=== PATIENT | male | born 1975 | race Caucasian/White ===

== ENCOUNTER 2017-03-24 09:16 | Emergency (ER) | payer MEDICAID ==
[2017-03-24 09:22] VITALS: BP 111/67
--- NOTE | 2017-03-24 09:52 | UC ---
Throat Pain/Nasal Wolf HPI - HPI Summary HPI Summary: 41 YEAR OLD MALE PRESENTS WITH SORE THROAT X 1 WEEK - History of Current Complaint Chief Complaint: UCRespiratory Stated Complaint: SORE THROAT Time Seen by Provider: 03/24/17 09:28 - Allergies/Home Medications Allergies/Adverse Reactions: Allergies Allergy/AdvReac Type Severity Reaction Status Date / Time No Known Allergies Allergy Verified 12/21/13 14:58 PMH/Surg Hx/FS Hx/Imm Hx Other History Of: Negative For: Anticoagulant Therapy - Surgical History Surgical History: None Surgery Procedure, Year, and Place: SMOKER, HYPOTHYROID - Social History Alcohol Use: Occasionally Alcohol Amount: "A FEW EVERY DAY" Substance Use Type: None Smoking Status (MU): Light Every Day Tobacco Smoker Type: Cigarettes Amount Used/How Often: 1/2 ppd - Immunization History Most Recent Tetanus Shot: <5 YEARS Review of Systems Constitutional: Negative Skin: Negative Eyes: Negative ENT: Sore Throat Respiratory: Negative Cardiovascular: Negative Gastrointestinal: Negative Musculoskeletal: Negative Neurological: Negative All Other Systems Reviewed And Are Negative: Yes Physical Exam Triage Information Reviewed: Yes Vital Signs: Initial Vital Signs Temp 37.4 C 03/24/17 09:18 Pulse 79 03/24/17 09:18 Resp 16 03/24/17 09:18 BP 111/67 03/24/17 09:18 Pulse Ox 100 03/24/17 09:18 Vital Signs Reviewed: Yes Eye Exam: Normal ENT: Positive: Pharyngeal erythema, Nasal drainage Neck exam: Normal Respiratory Exam: Normal Cardiovascular Exam: Normal Abdominal Exam: Normal Throat Pain/Nasal Course/Dx - Differential Dx/Diagnosis Differential Diagnosis/HQI/PQRI: Pharyngitis Provider Diagnoses: ALLERGIC RHINNITIS Discharge - Discharge Plan Condition: Stable Disposition: HOME Prescriptions: Amoxicillin CAP* [Amoxicillin 500 MG CAP*] 500 mg PO TID #21 cap Magic Mouth Was-BRIANNE/MAAL/LIDO* 5 ml SWISH SPIT QID #90 ml Patient Education Materials: Pharyngitis (ED) Forms: *Work Release Referrals: Jacinto Miles MD [Primary Care Provider] - If Needed
== END 2017-03-24 10:19 | disposition home or self-care (01) ==
LOC: UCEAST 09:16
DX: J30.9 Allergic rhinitis, unspecified (principal); F17.210 Nicotine dependence, cigarettes, uncomplicated
CPT/HCPCS: 87651; 99212; G0463

== ENCOUNTER 2017-12-06 07:59 | Emergency (ER) | payer OTHER ==
[2017-12-06 08:12] VITALS: BP 136/88
--- NOTE | 2017-12-06 09:02 | UC ---
Leroy English Jennifer, scribed for Marylin Bryan MD on 12/06/17 at 0853 . Ear Complaint HPI - HPI Summary HPI Summary: The patient is a 42 year old male who presents with plugged ears for almost two weeks. The patient reports he had a head cold and congestion for a while which is now gone, but he has had ringing and hissing in both ears, with the right ear being slightly worse. He replies that he tried a lot of decongestants and finished a bottle of Robitussin DM but nothing has helped. Pt states has continue to have nasal fullness - blowing nose and it "pops" in his ear. No pain. No fever, chills, rash. No vigil, vision changes. No cp, sob, abd pain. Pt also requested I eval left ankle that he sprained few weeks ago when he inverted it pulling piece of metal. Pt states he has been applying ice. Pt states has taken motrin with relief. Pt states continues to hurt a little so would like it checked. Patients medications reviewed this visit. - History of Current Complaint Chief Complaint: UCEar Stated Complaint: EAR PAIN Time Seen by Provider: 12/06/17 08:30 Hx Obtained From: Patient Onset/Duration: Sudden Onset, Lasting Weeks - almost 2 weeks, Still Present Severity Initially: Mild Severity Currently: Mild Pain Intensity: 2 Pain Scale Used: 0-10 Numeric Aggravating Factors: Nothing Alleviating Factors: Nothing Associated Signs/Symptoms: Positive: Hearing Loss - "ringing and hissing" in both ears Related History: Smoking, Other (Noted In Comments) - Cold - Allergies/Home Medications Allergies/Adverse Reactions: Allergies Allergy/AdvReac Type Severity Reaction Status Date / Time No Known Allergies Allergy Verified 12/06/17 08:06 Home Medications: Home Medications Levothyroxine TAB* [Synthroid TAB*] 175 mcg PO 12/06/17 [History] PMH/Surg Hx/FS Hx/Imm Hx Previously Healthy: Yes - NEG: HTN, DM Other History Of: Negative For: Anticoagulant Therapy - Surgical History Surgical History: None Surgery Procedure, Year, and Place: SMOKER, HYPOTHYROID - Family History Known Family History: Positive: Diabetes - Grandmother - Social History Occupation: Employed Full-time Lives: Dormitory/Roommates Alcohol Use: Occasionally Alcohol Amount: "A FEW EVERY DAY" Substance Use Type: None Smoking Status (MU): Light Every Day Tobacco Smoker Type: Cigarettes Amount Used/How Often: 1/2 ppd - Immunization History Most Recent Tetanus Shot: <5 YEARS Review of Systems Constitutional: Negative - Fever ENT: Ear Ache - "ringing and hissing" in ear Musculoskeletal: Other: - Sprained ankle All Other Systems Reviewed And Are Negative: Yes Physical Exam Triage Information Reviewed: Yes Appearance: Well-Appearing, No Pain Distress Vital Signs: Initial Vital Signs Temp 97.6 F 12/06/17 08:09 Pulse 81 12/06/17 08:09 Resp 16 12/06/17 08:09 BP 136/88 12/06/17 08:09 Pulse Ox 99 12/06/17 08:09 Vital Signs Reviewed: Yes Eye Exam: Normal Eyes: Positive: Conjunctiva Clear ENT: Positive: Pharynx normal, Nasal congestion, Other - right TM + fluid, no erythema, no bulge left tm scant fluid turbinates inflammed mmoist no exudate, no erythema. Negative: TMs normal, Tonsillar swelling, Tonsillar exudate Dental Exam: Normal Neck exam: Normal Neck: Positive: Supple Respiratory: Positive: Chest non-tender, Lungs clear, Normal breath sounds, No respiratory distress, No accessory muscle use Cardiovascular Exam: Normal Cardiovascular: Positive: RRR, No Murmur, Pulses Normal Musculoskeletal: Positive: Other: - + SLE + flex/ext knee + flex/ext ankle + TTP anterior aspect medial malleoulus no crepitus, no edema, no ecchymosis no pain along MT + inversion/eversion Neurological Exam: Normal Neurological: Positive: Alert - + gross sensation throughout foot Psychological Exam: Normal Psychological: Positive: Normal Response To Family Ear Complaint Course/Dx - Course Course Of Treatment: Pt with ears feeling full R>L Pt with fluid in right ear s /p URI. will Rx flonase and pseudoephederine (pt requesting Rx for records officer). recommend schedule a follow-up with PCP for next week. If sx persist may need further referral. d/w pt tinnitus - understands and agree with plan. Pt with mild discomfort medial malleoulus. pt declined analgesia and imaging. tiffany wrap. motrin/apap. ice. elevate. pt comfortable and in agreement with plan - Differential Dx/Diagnosis Provider Diagnoses: serous OM. ankle sprain Discharge - Discharge Plan Condition: Stable Disposition: HOME Prescriptions: Fluticasone NASAL SPRAY 50MCG* [Flonase NASAL SPRAY 50MCG*] 2 spray BOTH NARES DAILY #1 btl Pseudoephedrine HCL ER TAB* [Sudafed 12 Hour*] 120 mg PO DAILY #10 tab.er Patient Education Materials: Ankle Sprain (ED), Serous Otitis Media (ED) Forms: *Gen. Provider Communication Referrals: Woody Mayo MD [Primary Care Provider] - Additional Instructions: - Use nasal spray daily as instructed - It is also recommended you take a decongestant (pseudo-ephedrine) daily. You have been given a prescription for a 10 days course - for your ankle, wear tiffany wrap for support. - Okay to take ibuprofen (advil, motrin) and tylenol every 3 hours for pain. Take with food. - contact your doctor today to schedule a recheck of your ear next week.If you continue to have a ringing sound or concerns, your primary doctor may order additional testing or refer you to an jewel bearing maker The documentation as recorded by the Leroy joseph Jennifer accurately reflects the service I personally performed and the decisions made by , Marylin Bryan MD.
== END 2017-12-06 09:09 | disposition home or self-care (01) ==
LOC: UCEAST 07:59
DX: H65.90 Unspecified nonsuppurative otitis media, unspecified ear (principal); S93.402A Sprain of unspecified ligament of left ankle, initial encounter; X50.9XXA Other and unspecified overexertion or strenuous movements or postures, initial encounter; Y93.89 Activity, other specified; Y92.9 Unspecified place or not applicable; F17.210 Nicotine dependence, cigarettes, uncomplicated
CPT/HCPCS: 99212; G0463

== ENCOUNTER 2018-02-28 11:02 | Emergency (ER) | payer SELFPAY ==
[2018-02-28] MEDS ORDERED: Ketorolac INJ* 60 MG/2 ML VIAL IM ONE (11:36)
[2018-02-28] MEDS ORDERED: HYDROmorphone INJ* 2 MG/ML CARPUJECT SYRINGE IM ONE (11:37)
--- NOTE | 2018-02-28 12:02 | RAD ---
INDICATION: Left knee injury. TECHNIQUE: 2 views of the left knee were obtained. FINDINGS: The bones are normal alignment. There is a small joint effusion present. No fracture is seen. Joint spaces appear maintained. IMPRESSION: SMALL JOINT EFFUSION, NO FRACTURE IS SEEN.
[2018-02-28 12:24] VITALS: BP 128/81
--- NOTE | 2018-02-28 18:28 | ED ---
Niall English Rebecca, scribed for Husam Morales MD on 02/28/18 at 1127 . Lower Extremity - HPI Summary HPI Summary: Pt is a 42 y/o M who presents to ED c/o L knee pain. Yesterday afternoon, he was moving a 100 gallon tank when his left knee slipped in the mud and "folded in." At this time he "felt like it popped out of the joint for a second." Pain began after the incident, becoming especially bad at 0030 at which time he was woken up by the pain and he could not move the knee. Pain is on the lateral side of the knee and is currently severe, ranked 8/10. Took 5-6 ASA yesterday and more today about 1 hour EMERGENCY PHYSICIAN which have not alleviated sx. Sx aggravated by movement, especially flexion, alleviated by nothing. Denies tinnitus, numbness, weakness. Confirms that he can ambulate, but barely. Pt is active and works in maintenance. Incident occurred while the pt was at work. - History of Current Complaint Chief Complaint: EDExtremityLower Stated Complaint: LT KNEE INJURY Time Seen by Provider: 02/28/18 11:14 Hx Obtained From: Patient Mechanism Of Injury: Twisted Onset of Pain: Prior to Arrival Onset/Duration: Still Present Severity Currently: Severe Pain Intensity: 8 Pain Scale Used: 0-10 Numeric Location: Is Discrete @ - Lateral side of the left knee Associated Signs And Symptoms: Positive: Negative Aggravating Factor(s): Movement Alleviating Factor(s): Nothing Able to Bear Weight: Yes - Barely Related History: Occupational Injury - Allergies/Home Medications Allergies/Adverse Reactions: Allergies Allergy/AdvReac Type Severity Reaction Status Date / Time No Known Allergies Allergy Verified 12/06/17 08:06 Home Medications: Home Medications Multivitamins/Minerals TAB* [Theragran/minerals TAB*] 1 tab PO DAILY 02/28/18 [ History Confirmed 02/28/18] Omeprazole CAP* [Prilosec CAP* 20 MG] 20 mg PO DAILY 02/28/18 [History Confirmed 02/28/18] PMH/Surg Hx/FS Hx/Imm Hx Endocrine/Hematology History: Reports: Hx Thyroid Disease - HYPOTHYROID Denies: Hx Anticoagulant Therapy Cardiovascular History: Denies: Hx Coronary Artery Disease - Surgical History Surgery Procedure, Year, and Place: SMOKER, HYPOTHYROID Infectious Disease History: No Infectious Disease History: Denies: Traveled Outside the [place] in Last 30 Days - Family History Known Family History: Positive: Diabetes - Grandmother - Social History Alcohol Use: Occasionally Alcohol Amount: "A FEW EVERY DAY" Substance Use Type: Reports: None Smoking Status (MU): Light Every Day Tobacco Smoker Type: Cigarettes Amount Used/How Often: 1/2 ppd Review of Systems Positive: Other - NEGATIVE: Tinnitus Positive: Arthralgia - L lateral knee pain Negative: Weakness, Numbness All Other Systems Reviewed And Are Negative: Yes Physical Exam - Summary Physical Exam Summary: Appearance: Well appearing, no pain distress Skin: warm, dry, reflects adequate perfusion Head/face: normal Eyes: EOMI, JAMIR ENT: normal Neck: supple, non-tender Respiratory: CTA, breath sounds present Cardiovascular: RRR, pulses symmetrical Abdomen: non-tender, soft Bowel Sounds: present Musculoskeletal: Effusion on the left knee, lateral joint line tenderness on the left knee Neuro: normal, sensory motor intact, A&Ox3 Triage Information Reviewed: Yes Vital Signs On Initial Exam: Initial Vitals Temp Pulse Resp BP Pulse Ox 97.1 F 90 18 133/81 99 02/28/18 11:03 02/28/18 11:03 02/28/18 11:03 02/28/18 11:03 02/28/18 11:03 Vital Signs Reviewed: Yes Diagnostics - Vital Signs Vital Signs Temp Pulse Resp BP Pulse Ox 02/28/18 11:03 97.1 F 90 18 133/81 99 - Laboratory Lab Statement: Any lab studies that have been ordered have been reviewed, and results considered in the medical decision making process. - Radiology Knee XR Radiology Interpretation Completed By: Radiologist - SMALL JOINT EFFUSION, NO FRACTURE IS SEEN. ED physician reviewed this report. Lower Extremity Course/Dx - Course Course Of Treatment: Patient was joint effusion and apparent internal derangement of the knee. Unable to fully assess the joint due to pain. Likely ACL possible MCL injury given the mechanism. However, most of his discomfort is at the lateral joint line. This may be from contusion in the area. Placed in a knee immobilizer and Dillon wrap and taught to walk on crutches. Treated symptomatically for pain. Referred to orthopedics. Encouraged the patient to take his leg out of immobilizer and range every hour or so. - Diagnoses Differential Diagnosis/HQI/PQRI: Positive: Other - Fracture, joint effusion, meniscus/ligamentous injury Provider Diagnoses: Internal derangement of knee, acute Discharge - Sign-Out/Discharge Documenting (check all that apply): Discharge/Admit/Transfer - Discharge Plan Condition: Good Disposition: HOME Prescriptions: HYDROcodone/ACETAMIN 5-325 MG* [Daykin 5-325 TAB*] 1 tab PO Q6H PRN #20 tab MDD 4 PRN Reason: for more severe pain Naproxen [Naproxen 500 mg tab] 500 mg PO BID PRN #14 tablet.dr PRN Reason: Pain Patient Education Materials: ACL Injury (ED) Referrals: Alexis Fuentes MD [Medical Doctor] - Woody Mayo MD [Primary Care Provider] - Additional Instructions: Ice, elevate it rest, range of motion exercises every hour. Call today to schedule appointment to be seen by orthopedics. - Billing Disposition and Condition Condition: GOOD Disposition: Home The documentation as recorded by the Niall joseph Rebecca accurately reflects the service I personally performed and the decisions made by Andrew mast Kirk, MD.
== END 2018-02-28 12:22 | disposition home or self-care (01) ==
LOC: ED 11:02
DX: S89.92XA Unspecified injury of left lower leg, initial encounter (principal); W18.40XA Slipping, tripping and stumbling without falling, unspecified, initial encounter; Y93.89 Activity, other specified; Y92.9 Unspecified place or not applicable; Y99.0 Civilian activity done for income or pay; M25.462 Effusion, left knee; E03.9 Hypothyroidism, unspecified; Z83.3 Family history of diabetes mellitus; F17.210 Nicotine dependence, cigarettes, uncomplicated
CPT/HCPCS: 96372; 99283; J1170; J1885

== ENCOUNTER 2019-12-02 14:25 | Emergency (ER) | payer SELFPAY ==
--- NOTE | 2019-12-02 15:35 | ED ---
Lower Extremity - HPI Summary HPI Summary: 44 year old male presents with left knee pain for the past 5 days. He states has history of ACL tear and he knee swells every once in a while. He states he normally take naproxen and ice and it goes down but it has not. He states he is in severe pain. He states is having difficulty placing weight on the area. He denies any fevers or chills. no rash to the area. has history of thryoid issues. He denies any new injury. - History of Current Complaint Chief Complaint: EDExtremityLower Stated Complaint: LT LEG ACL PAIN PER PT Time Seen by Provider: 12/02/19 14:50 Pain Intensity: 8 - Allergies/Home Medications Allergies/Adverse Reactions: Allergies Allergy/AdvReac Type Severity Reaction Status Date / Time No Known Allergies Allergy Verified 12/02/19 14:35 Home Medications: Home Medications Levothyroxine TAB* [Synthroid TAB*] 175 mcg PO DAILY 12/06/17 [History Confirmed 02/28/18] HYDROcodone/ACETAMIN 5-325 MG* [[place] 5-325 TAB*] 1 tab PO Q6H PRN #20 tab MDD 4 02/28/18 [Rx] Multivitamins/Minerals TAB* [Theragran/minerals TAB*] 1 tab PO DAILY 02/28/18 [ History Confirmed 02/28/18] Naproxen [Naproxen 500 mg tab] 500 mg PO BID PRN #14 tablet. 02/28/18 [Rx] Omeprazole CAP (NF) [Prilosec CAP* 20 MG] 20 mg PO DAILY 02/28/18 [History Confirmed 02/28/18] HYDROcodone/ACETAMIN 5-325 MG* [[place] 5-325 TAB*] 1 tab PO Q6H PRN #8 tab MDD 4 12/02/19 [Rx] PMH/Surg Hx/FS Hx/Imm Hx Endocrine/Hematology History: Reports: Hx Thyroid Disease - HYPOTHYROID Denies: Hx Anticoagulant Therapy Cardiovascular History: Denies: Hx Coronary Artery Disease - Surgical History Surgery Procedure, Year, and Place: SMOKER, HYPOTHYROID Infectious Disease History: No Infectious Disease History: Denies: Traveled Outside the [place] in Last 30 Days - Family History Known Family History: Positive: Diabetes - Grandmother - Social History Alcohol Use: Daily Alcohol Amount: 2 drinks or more daily Substance Use Type: Reports: None Smoking Status (MU): Heavy Every Day Tobacco Smoker Type: Cigarettes Amount Used/How Often: 1/2 ppd Review of Systems Negative: Fever Negative: Chest Pain Negative: Shortness Of Breath Positive: Myalgia - left knee pain All Other Systems Reviewed And Are Negative: Yes Physical Exam Triage Information Reviewed: Yes Vital Signs On Initial Exam: Initial Vitals Temp Pulse Resp BP Pulse Ox 98.8 F 95 16 139/107 98 12/02/19 14:35 12/02/19 14:35 12/02/19 14:35 12/02/19 14:35 12/02/19 14:35 Vital Signs Reviewed: Yes Appearance: Positive: Well-Appearing Skin: Positive: Warm, Dry Head/Face: Positive: Normal Head/Face Inspection Eyes: Positive: Normal, Conjunctiva Clear ENT: Positive: Pharynx normal Respiratory/Lung Sounds: Positive: Clear to Auscultation, Breath Sounds Present Cardiovascular: Positive: Normal, RRR Musculoskeletal: Positive: Limited @ - left knee with pain, Edema Left - knee, Other - good pulses, no erythema or warmth to touch, sensation grossly intact Neurological: Positive: Normal Psychiatric: Positive: Normal Procedures - Sedation Patient Received Moderate/Deep Sedation with Procedure: No Diagnostics - Vital Signs Vital Signs Temp Pulse Resp BP Pulse Ox 12/02/19 14:35 98.8 F 95 16 139/107 98 - Laboratory Result Diagrams: 12/02/19 16:28 12/02/19 16:28 Lab Statement: Any lab studies that have been ordered have been reviewed, and results considered in the medical decision making process. - Radiology knee Radiology Interpretation Completed By: Radiologist Summary of Radiographic Findings: IMPRESSION: MODERATE EFFUSION WITH NO FRACTURE IDENTIFIED Re-Evaluation - Re-Evaluation First Eval Re-Evaluation Time: 17:28 Change: Improved Comment: discussed tapping knee and patient declined. Lower Extremity Course/Dx - Course Course Of Treatment: 44 year old male presents with left knee pain for the past 5 days. He states has history of ACL tear and he knee swells every once in a while. He states he normally take naproxen and ice and it goes down but it has not. He states he is in severe pain. He states is having difficulty placing weight on the area. He denies any fevers or chills. no rash to the area. has history of thryoid issues. He denies any new injury. on exam has effusion noted to knee. limited ROM with pain. no erythema to joint. xray shows joint effusion. wbc normal. crp elevated. discussed with dr hunt that does not appear to be septic joint and does have some ROM and able to ambulate so does not appear like septic joint at this time. discussed going a therapeutic tap and patient declined. told follow with orthopedic. Told to ice elevate. Patient understands and agrees with the plan. - Diagnoses Differential Diagnosis/HQI/PQRI: Positive: Fracture (Closed), Septic Arthritis, Sprain Provider Diagnoses: Effusion, left knee Discharge ED - Sign-Out/Discharge Documenting (check all that apply): Patient Departure - Discharge Plan Condition: Good Disposition: HOME Prescriptions: HYDROcodone/ACETAMIN 5-325 MG* [[place] 5-325 TAB*] 1 tab PO Q6H PRN #8 tab MDD 4 PRN Reason: Pain - Severe Patient Education Materials: Swollen Knee Joint (ED) Forms: *Work Release Referrals: Joaquin Choi NP [Primary Care Provider] - Alexis Fuentes MD [Medical Doctor] - Additional Instructions: Take Tylenol or ibuprofen every 6 hours as needed for pain, use norco every 6 hours for breakthroug hpain Apply ice, rest, elevate Keep tiffany on area Follow up with ortho Return to ED if develop fever, redness to joint, inability to move joint or any new or worsening symptoms - Billing Disposition and Condition Condition: GOOD Disposition: Home
[2019-12-02] MEDS ORDERED: oxyCODONE/Acetamin 5/325 MG* TAB PO ONE (15:54)
[2019-12-02 16:38] LABS: ABS Basophils 0.1 10^3/ul (0-0.2); ABS Eosinophils 0.3 10^3/ul (0-0.6); ABS Lymphocytes 1.7 10^3/ul (1.0-4.8); ABS Monocytes 0.9 10^3/ul (0-0.8); ABS Neutrophils 6.9 10^3/ul (1.5-7.7); Hematocrit 42 % (42-52); Lymphocyte % 17.3 %; Mean Corpuscular HGB Conc 35 g/dL (31-36); Mean Corpuscular Hemoglobin 32 pg (27-31); Mean Corpuscular Volume 91 fL (80-94); Mean Platelet Volume 6.4 fL (7.4-10.4); Nucleated Red Blood Cells % 0.1; Platelet Count 303 10^3/uL (150-450); Red Blood Count 4.65 10^6 /uL (4.18-5.48); Red Cell Distribution Width 14 % (10-15); White Blood Count 9.9 10^3/uL (3.5-10.8)
[2019-12-02] MEDS ORDERED: Ketorolac INJ* 30 MG/ML 1 ML VIAL IM ONE (16:55)
[2019-12-02 17:05] LABS: Albumin/Globulin Ratio 1.4 (1-3); BUN/Creatinine Ratio 18.3 (8-20); Calcium 9.4 mg/dL (8.6-10.3); EGFR African American 122.9 (>60); EGFR Non-African American 101.6 (>60); Globulin 2.8 g/dL (2-4); Potassium 4.2 mmol/L (3.5-5.0); Total Bilirubin 0.4 mg/dL (0.2-1.0); Total Protein 6.8 g/dL (6.4-8.9)
[2019-12-02 17:49] LABS: Erythrocyte Sed Rate 43 mm/Hr (0-14)
[2019-12-02 17:55] VITALS: BP 128/72
--- NOTE | 2019-12-04 14:00 | ED ---
Imaging and Labs Follow Up Follow Up Type: Labs/Cultures Labs/Culture Result: Lyme titer positive. Patient Communication/Plan: Pt. was seen in ED for knee effusion. Per ED note pt. has a hx of knee effusion. No report of tick bite, rash, fevers. Lyme titer positive. Attempted to call pt. today at [phone] with no answer and inbox was full. Will wait for confirmatory testing. Provider Diagnoses: Effusion, left knee
== END 2019-12-02 17:50 | disposition home or self-care (01) ==
LOC: ED 14:25
DX: M25.462 Effusion, left knee (principal); E03.9 Hypothyroidism, unspecified; Z79.899 Other long term (current) drug therapy; F17.210 Nicotine dependence, cigarettes, uncomplicated
CPT/HCPCS: 36415; 80053; 85025; 85652; 86140; 86617; 86618; 96372; 99282; A9270-GY; J1885